=== PATIENT | male | born 1970 | race Caucasian/White ===

== ENCOUNTER 2019-12-05 14:41 | Inpatient (IN) | payer MEDICAID ==
[~2019-12-05] VITALS: Ht 170.2 cm; Wt 64.3 kg
[2019-12-05] MEDS ORDERED: QUET400T12 PO (15:11)
[2019-12-05] MEDS ORDERED: loperamide 2mg capsule PO PRN (15:15)
[2019-12-05] MEDS ORDERED: hydrOXYzine 25 MG tablet PO PRN (15:15)
[2019-12-05] MEDS ORDERED: traZODone 50mg tablet PO PRN (15:15)
[2019-12-05] MEDS ORDERED: diphenhydrAMINE 25mg capsule PO PRN (15:15)
[2019-12-05] MEDS ORDERED: mag hydrox/Alum hydrox/simeth 30ml oral suspension PO PRN (15:15)
[2019-12-05] MEDS ORDERED: LORazepam 1 MG tablet PO PRN (15:15)
[2019-12-05] MEDS ORDERED: magnesium hydroxide 30ml (MOM) UD suspension PO PRN (15:15)
[2019-12-05] MEDS ORDERED: haloperidol 5mg tablet PO PRN (15:15)
[2019-12-05] MEDS ORDERED: acetaminophen 325mg tablet PO PRN ×2 (15:15)
[2019-12-05 20:00] VITALS: BP 116/88
[2019-12-05] MEDS ORDERED: PALI9TAB PO (20:39)
[2019-12-05] MEDS: quetiapine 100mg tablet PO SCH (22:35)
--- NOTE | 2019-12-06 03:38 | NUR ---
TEASELER NOTE: LEGAL HOLD: 5150 for DTS. REPORT: Received from JANET Valiente with use of SBAR REASON FOR ADMISSION: Client was transferred from [facility] and arrived on the unit at 20:00. Client was accompanied to unit by and BLAISE Martinez in a wheelchair. Changed into green scrubs, vital signs, physical and skin assessment were obtained. Client has a long history of mental health issues, poly-substance abuse, ETOH abuse, and one suicide attempt. He reports hearing ten different voices that tell him to hurt himself and others. Client stopped taking his meds two weeks ago and has declined since. Reports that the voices are "worse than they have ever been". Client arrived on unit disheveled, and appeared anxious. He was cooperative during admission. His belongings were inventoried. He received 800 mg Seroquel Tab PO and went to sleep. ASSESSMENT: S/I, H/I: Admitted for SI A/VH: AH/CAH Sleep:morning nap. ADL's: Independent Group attendance: No Groups at this time. Were meds taken: Yes Any med S/E: None reported or observed. MSE: Appearance: disheveled, tanned Eye contact: fair Behavior: cooperative Speech: Minimal, clear Mood: anxious Affect: blunted Thought process: Linear Cognition: A&O X3 Insight: Fair Judgment: Fair INTERVENTIONS: PRN's used: None Therapeutic interventions: Safe, therapeutic environment. Meds. Restraints/seclusion/emergency medication: None Justification of Continued Inpatient Treatment: Client has been off medications and needs stabilization and a safe discharge plan.
[2019-12-06 07:57] VITALS: BP 117/78
[2019-12-06] MEDS: PALIPERIDONE 3 MG TAB.ER.24 PO SCH (08:02)
[2019-12-06 08:47] LABS: HEMOGLOBIN A1C 5.4 % (4.5-6.2)
[2019-12-06 08:56] LABS: CHOL/HDL RATIO 2.7 (0.00-4.99); CHOLESTEROL 154 MG/DL (0-200); HDL CHOLESTEROL 57 MG/DL (35-60); LDL CHOLESTEROL 84 MG/DL (50-100); TRIGLYCERIDES 74 MG/DL (20-135)
[2019-12-06] MEDS ORDERED: FLU VACC QS2019-20 36MOS UP/PF 60 MCG/0.5 ML SYRINGE IMVAC ONE (10:00)
[2019-12-06] MEDS ORDERED: pneumococcal 23-VAL P-sac vacc 25 mcg/0.5ml vial IMVAC ONE (10:00)
--- NOTE | 2019-12-06 17:15 | NUR ---
Nursing Progress Note: LEGAL HOLD: 5150 for DTS. REPORT: Received from JANET Montalvo with use of SBAR REASON FOR ADMISSION: Client has a long history of mental health issues, poly-substance abuse, ETOH abuse, and one suicide attempt. He reports hearing ten different voices that tell him to hurt himself and others. Client stopped taking his meds two weeks ago and has declined since. Reports that the voices are "worse than they have ever been". Client arrived on unit disheveled, and appeared anxious. He was cooperative during admission. His belongings were inventoried. He received 800 mg Seroquel Tab PO and went to sleep. What happened this shift: Patient awakened for breakfast and medications. Patient appears depressed and napped in a.m. Patient states that he has been suicidal for a long time. After he quit taking his medications, the command auditory hallucinations returned, telling him to kill himself. Pt. Reports that the voices are barely noticeable in the morning and increase as the day goes on. Patient spent much of the shift sleeping. ASSESSMENT: S/I, H/I: +SI. A/VH: AH/CAH Sleep: morning nap. ADL's: Independent Group attendance: NA Were meds taken: Yes Any med S/E: None reported or observed. Mental status exam: Appearance: Tanned male with salt and pepper hair and jiménez. Eye contact: Poor. Behavior: Fatigued. Calm, cooperative. Withdrawn, isolative. Speech: Minimal, clear Mood: Depressed. Affect: Flat. Thought process: Linear Cognition: A&O X3 Insight: Fair Judgment: Fair INTERVENTIONS: PRN's used: None Therapeutic interventions: 1:1 to evaluate for severity of mental disorder, SI. Administer medications/education/monitoring. Therapeutic conversation. Q15 safety checks. Restraints/seclusion/emergency medication: None Justification of Continued Inpatient Treatment: Patient is in need of a safe, supportive environment. Medication adjustments to stabilize patient and decrease risk of readmission.
[2019-12-06 20:00] VITALS: BP 129/88
[2019-12-06] MEDS: quetiapine 100mg tablet PO SCH (21:17)
--- NOTE | 2019-12-07 00:32 | NUR ---
Nursing Progress Note: Jevon Legal hold: 5150 Client on voluntary/involuntary status for DTS. Report received from MYRA Talavera with use of SBAR. Why are they here: Client has a long history of mental health issues, poly-substance abuse, ETOH abuse, and one suicide attempt. He reports hearing ten different voices that tell him to hurt himself and others. Client stopped taking his meds two weeks ago and has declined since. Reports that the voices are "worse than they have ever been". Client arrived on unit disheveled, and appeared anxious. He was cooperative during admission. His belongings were inventoried. He received 800 mg Seroquel Tab PO and went to sleep.. Assessment What has happened this shift: Pt was in recreation room for most of the evening. He then retired to his room and napped for a good while. Awaken pt for physical and medication administration, which he was compliant with. Pt states that he is feeling okay. When asked what had brought him here, he states that the voices where getting loud, telling him to hurt himself and others and other weird stuff. He states that right now, theres nothing that he can hurt himself so the voices are less demanding but they are trying to change his personality. Pt denies hearing any voices right now but states that they are pretty constant but usually go away when he is sleeping. He denies any S/I, H/I, depression or anxiety. He also states that he has visual hallucinations, "bursting fire and other weird stuff that I know it's not real." He states that this are worst during the night in the dark. Will continue to monitor. S/I, H/I: Denies A/VH: Currently none but states that he was having auditory and visual hallucinations all throughout the day Sleep: Currently sleeping, see sleep assessment for total hours ADL's: Independent Group attendance: None during casino shift manager Were meds taken: Yes Any med S/E: None reported or observed Mental Status Exam Appearance: Appropriate, wearing personal clothing, well groomed Eye contact: Direct, good Behavior: Calm, cooperative, somewhat isolative Speech: Normal rate and rhythm Mood: Euthymic Affect: Blunted Thought process: Circumstantial Thought Content: Sleep, medication, discharge Cognition: Alert and oriented X4 Insight: Poor Judgment: Poor Interventions PRN's used: None Therapeutic interventions: 1:1 to evaluate for severity of mental disorder, SI. Administer medications/education/monitoring. Therapeutic conversation. Q15 safety checks. Restraints/seclusion/emergency medication: None Justification of Continued Inpatient Treatment: Patient is in need of a safe, supportive environment. Medication adjustments to stabilize patient and decrease risk of readmission.
[2019-12-07 08:00] VITALS: BP 123/74
[2019-12-07] MEDS: PALIPERIDONE 3 MG TAB.ER.24 PO SCH (08:04)
--- NOTE | 2019-12-07 09:10 | NUR ---
PSYCHOSOCIAL ASSESSMENT Jevon is a 49 y/o single male who was placed on 5150 for danger to self. He was taken to [facility] in [facility] by police due to command auditory hallucinations telling him to harm himself. He was without medications for 2 weeks because they were in his car which was impounded. Jevon currently lives in a mobile home on a friends property in [place]. He is followed by [facility] and has been hospitalized 6 times over the last 5 years. He plans on returning to [place] upon discharge. PAMELA Nj Addendum: 12/07/19 at 0911 by Caridad ACOSTA Amended: Links added.
--- NOTE | 2019-12-07 12:49 | NUR ---
NURSING PROGRESS NOTE LEGAL HOLD: 5150 for DTS. REPORT: Received from JANET Montalvo with use of SBAR REASON FOR ADMISSION: Client has a long history of mental health issues, poly-substance abuse, ETOH abuse, and one suicide attempt. He reports hearing ten different voices that tell him to hurt himself and others. Client stopped taking his meds two weeks ago and has declined since. Reports that the voices are "worse than they have ever been". Client arrived on unit disheveled, and appeared anxious. He was cooperative during admission. His belongings were inventoried. He received 800 mg Seroquel Tab PO and went to sleep. What happened this shift: Patient is asleep at change of shift. Depressed mood, flat affect. Reports command auditory hallucinations and some VH's which he describes as "things just move around, or if I look out the window things fall out of the alyssa, its terra hard to describe." Denies SI because he states, "I feel safe here." Eating well and medication compliant. Polite and cooperative. Encouraged to come out on unit and to let staff know if he feels overwhelmed or anxious. ASSESSMENT: S/I, H/I: Denies A/VH: Auditory and visual Sleep: naps briefly ADL's: Independent Group attendance: N/A Were meds taken: Yes Any med S/E: None reported or observed. Mental status exam: Appearance: clean and neat Eye contact: fair Behavior: Cooperative Speech: soft, clear Mood: Depressed. Affect: Flat. Thought process: Linear Cognition: A&O X3 Insight: Fair Judgment: Fair INTERVENTIONS: PRN's used: None Therapeutic interventions: 1:1 to evaluate for severity of mental disorder, SI. Administer medications/education/monitoring. Therapeutic conversation. Q15 safety checks. Restraints/seclusion/emergency medication: None Justification of Continued Inpatient Treatment: Patient is in need of a safe, supportive environment. Medication adjustments to stabilize patient and decrease risk of readmission.
[2019-12-07 20:13] VITALS: BP 130/85
[2019-12-07] MEDS: quetiapine 100mg tablet PO SCH (20:48)
--- NOTE | 2019-12-08 00:18 | NUR ---
Nursing Progress Note: Jevon Legal hold: 5150 Client on involuntary status for DTS. Report received from JANET Antony with use of SBAR. Why are they here: Client has a long history of mental health issues, poly-substance abuse, ETOH abuse, and one suicide attempt. He reports hearing ten different voices that tell him to hurt himself and others. Client stopped taking his meds two weeks ago and has declined since. Reports that the voices are "worse than they have ever been". Client arrived on unit disheveled, and appeared anxious. He was cooperative during admission. His belongings were inventoried. He received 800 mg Seroquel Tab PO and went to sleep.. Assessment What has happened this shift: Pt was in his room during shift change and appeared to be sleeping. Pt was observed in recreation room watching TV and socializing appropriately with other patients. He denies any depression or anxiety and when asked about his mood he states Its kind of right in the middle. I have been feeling a little down today. Pts affect continues to be blunted with intermittent brightening. His behavior seemed a little more guarded as he did not engage in conversation with this public relations writer and only answered questions minimally. When asked about hallucinations he states that he is hearing weird voices. Does not elaborate on what they are saying. He states that he also sees weird stuff once in a while. Denies any S/I, H/I. Pt was not observed responding to internal stimuli and did not make any delusional statements. He spent some more time in TV room before going to bed. S/I, H/I: Denies A/VH: +A/H, +V/H Sleep: Currently sleeping, see sleep assessment for total hours ADL's: Independent Group attendance: None during shift stacker Were meds taken: Yes Any med S/E: None reported or observed Mental Status Exam Appearance: Appropriate, wearing personal clothing, well groomed Eye contact: Direct, good Behavior: Calm, cooperative, somewhat guarded Speech: Normal rate and rhythm Mood: "Kind of right in the middle", states he has been feeling down Affect: Blunted Thought process: Circumstantial Thought Content: Medication, discharge Cognition: Alert and oriented X4 Insight: Fair Judgment: Poor Interventions PRN's used: None Therapeutic interventions: 1:1 to evaluate for severity of mental disorder, SI. Administer medications/education/monitoring. Therapeutic conversation. Q15 safety checks. Restraints/seclusion/emergency medication: None Justification of Continued Inpatient Treatment: Patient is in need of a safe, supportive environment. Medication adjustments to stabilize patient and decrease risk of readmission.
[2019-12-08 08:00] VITALS: BP 118/80
[2019-12-08] MEDS: PALIPERIDONE 3 MG TAB.ER.24 PO SCH (08:07)
--- NOTE | 2019-12-08 14:21 | NUR ---
NURSING PROGRESS NOTE VOLUNTARY REPORT: Received from MYAR Razo with use of SBAR REASON FOR ADMISSION: Client has a long history of mental health issues, poly-substance abuse, ETOH abuse, and one suicide attempt. He reports hearing ten different voices that tell him to hurt himself and others. Client stopped taking his meds two weeks ago and has declined since. Reports that the voices are "worse than they have ever been". Client arrived on unit disheveled, and appeared anxious. He was cooperative during admission. His belongings were inventoried. He received 800 mg Seroquel Tab PO and went to sleep. What happened this shift: Patient is asleep at change of shift. Depressed mood, flat affect. Reports command auditory hallucinations worsening today and having increased anxiety. Given Ativan 2mg with good effect in calming patient, was able to take a nap and rest. Denies SI because he states, "I still feel safe here." Eating well and medication compliant. Polite and cooperative. Agreed to voluntary status and agrees and signs to stay a few more days after talking with PA. Encouraged to come out on unit and to let staff know if he feels overwhelmed or anxious. ASSESSMENT: S/I, H/I: Denies A/VH: Auditory and visual Sleep: naps briefly ADL's: Independent Group attendance: N/A Were meds taken: Yes Any med S/E: None reported or observed. Mental status exam: Appearance: clean and neat Eye contact: fair Behavior: Cooperative Speech: soft, clear Mood: Depressed. Affect: Flat. Thought process: Linear Cognition: A&O X3 Insight: Fair Judgment: Fair INTERVENTIONS: PRN's used: Ativan 2mg x1 Therapeutic interventions: 1:1 to evaluate for severity of mental disorder, SI. Administer medications/education/monitoring. Therapeutic conversation. Q15 safety checks. Restraints/seclusion/emergency medication: None Justification of Continued Inpatient Treatment: Patient is in need of a safe, supportive environment. Medication adjustments to stabilize patient and decrease risk of readmission.
[2019-12-08 20:03] VITALS: BP 130/88
[2019-12-08] MEDS: quetiapine 100mg tablet PO SCH (21:24)
--- NOTE | 2019-12-09 00:34 | NUR ---
Nursing Progress Note: Jevon Legal hold: Voluntary Client on voluntary status for DTS. Report received from JANET Antony with use of SBAR. Why are they here: Client has a long history of mental health issues, poly-substance abuse, ETOH abuse, and one suicide attempt. He reports hearing ten different voices that tell him to hurt himself and others. Client stopped taking his meds two weeks ago and has declined since. Reports that the voices are "worse than they have ever been". Client arrived on unit disheveled, and appeared anxious. He was cooperative during admission. His belongings were inventoried. He received 800 mg Seroquel Tab PO and went to sleep.. Assessment What has happened this shift: Pt was in TV room watching a movie during shift change. He as cooperative during 1:1 physical assessment and took his Seroquel without any issues. Pt states that the voices are still present and that they always want to hurt him. He feels like he is constantly fighting against the voices. When asked about his hold being up and how he feels about that, he states that he feels okay with it and will likely be going home on Wednesday or Wednesday back home to [place]. He denies any S/I, or H/I even though the voices are telling him to hurt himself but he wont let them get to him. Pt endorses mild anxiety but he states it is pretty normal for him and does not want any medication for it. He sates that he feels like he had his worst breakdown before coming here. When asked if he feels like the medications are helping he states that the Seroquel helps him by calming the voices but is not sure about the Invega. Pt was observed pacing the isles for some time before going to bed. S/I, H/I: Denies A/VH: +A/H, negative demanding voices that tell him to hurt himself. Sleep: Currently sleeping, see sleep assessment for total hours ADL's: Independent Group attendance: None during monitoring tech Were meds taken: Yes Any med S/E: None reported or observed Mental Status Exam Appearance: Appropriate, wearing personal clothing, well groomed Eye contact: Direct, good Behavior: Calm, cooperative, appears be socializing appropriately with other patients Speech: Normal rate and rhythm Mood: "not too shabby" pt still appears somewhat depressed Affect: Blunted with intermittent brightening Thought process: Circumstantial Thought Content: Medication, discharge, being able to handle the hallucinations Cognition: Alert and oriented X4 Insight: Fair Judgment: Poor Interventions PRN's used: None Therapeutic interventions: 1:1 to evaluate for severity of mental disorder, SI. Administer medications/education/monitoring. Therapeutic conversation. Q15 safety checks. Restraints/seclusion/emergency medication: None Justification of Continued Inpatient Treatment: Patient is in need of a safe, supportive environment. Medication adjustments to stabilize patient and decrease risk of readmission.
[2019-12-09 07:18] VITALS: BP 107/77
[2019-12-09] MEDS: PALIPERIDONE 3 MG TAB.ER.24 PO SCH (08:08)
--- NOTE | 2019-12-09 10:41 | NUR ---
Initial: Pt admit with psychosis with SI. Pt on a regular diet documented with 100% PO intake meeting nutrient needs. LBM 12/07. No edema or wounds. No nutrition diagnosis at this time. Will continue to follow. Recommendations: 1) Continue regular diet 2) Bowel care PRN 3) Wt per rx Addendum: 12/09/19 at [address] Amended: Links added.
--- NOTE | 2019-12-09 16:31 | NUR ---
NURSING PROGRESS NOTE VOLUNTARY REPORT: Received from MYRA Razo with use of SBAR REASON FOR ADMISSION: Client has a long history of mental health issues, poly-substance abuse, ETOH abuse, and one suicide attempt. He reports hearing ten different voices that tell him to hurt himself and others. Client stopped taking his meds two weeks ago and has declined since. Reports that the voices are "worse than they have ever been". Client arrived on unit disheveled, and appeared anxious. He was cooperative during admission. His belongings were inventoried. He received 800 mg Seroquel Tab PO and went to sleep. What happened this shift: Received pt sleeping at shift change. Pt. awakens for medications and breakfast. Pt. appears depressed and sleeps throughout the day. Pt. does not make eye contact while conversing. Patient is polite in all interactions. Pt. reports that the voices are "just messing with me today". The voices say they are going to leave him alone, and then just keep talking to him, but nothing negative in their comments today. Pt. states that the voices never go away. ASSESSMENT: S/I, H/I: Denies A/VH: Auditory Sleep: Naps ADL's: Independent Group attendance: N/A Were meds taken: Yes Any med S/E: None reported or observed. Mental status exam: Appearance: clean and neat Eye contact: Poor Behavior: Cooperative, friendly. Speech: soft, clear Mood: Depressed. Affect: Flat. Thought process: Linear Cognition: A&O X3 Insight: Fair Judgment: Fair INTERVENTIONS: PRN's used: Ativan 2mg x1 Therapeutic interventions: 1:1 to evaluate for severity of mental disorder, SI. Administer medications/education/monitoring. Therapeutic conversation. Q15 safety checks. Restraints/seclusion/emergency medication: None Justification of Continued Inpatient Treatment: Patient is in need of a safe, supportive environment. Medication adjustments to stabilize patient and decrease risk of readmission.
[2019-12-09] MEDS: quetiapine 100mg tablet PO SCH (20:15)
--- NOTE | 2019-12-10 02:27 | NUR ---
NURSING PROGRESS NOTE VOLUNTARY REPORT: Received from MYRA Antony with use of SBAR REASON FOR ADMISSION: Client has a long history of mental health issues, poly-substance abuse, ETOH abuse, and one suicide attempt. He reports hearing ten different voices that tell him to hurt himself and others. Client stopped taking his meds two weeks ago and has declined since. Reports that the voices are "worse than they have ever been". Client arrived on unit disheveled, and appeared anxious. He was cooperative during admission. His belongings were inventoried. He received 800 mg Seroquel Tab PO and went to sleep. ASSESSMENT: What happened this shift: Patient in rec room sitting in the corner not inter acting with peers. Pt stated that he feels good . He was responding to internal stimuli. Asked what the voices are telling him. He stated there just talking. Pt was Med compliant ate snack and went to bed. S/I, H/I: Denies A/VH: Auditory Sleep: Naps ADL's: Independent Group attendance: N/A Were meds taken: Yes Any med S/E: None reported or observed. Mental status exam: Appearance: clean and neat Eye contact: Poor Behavior: Cooperative, friendly. Speech: soft, clear Mood: Depressed. Affect: Flat. Thought process: Linear Cognition: A&O X3 Insight: Fair Judgment: Fair INTERVENTIONS: PRN's used: Ativan 2mg x1 Therapeutic interventions: 1:1 to evaluate for severity of mental disorder, SI. Administer medications/education/monitoring. Therapeutic conversation. Q15 safety checks. Restraints/seclusion/emergency medication: None Justification of Continued Inpatient Treatment: Patient is in need of a safe, supportive environment. Medication adjustments to stabilize patient and decrease risk of readmission.
[2019-12-10 07:41] VITALS: BP 105/73
[2019-12-10] MEDS: PALIPERIDONE 3 MG TAB.ER.24 PO SCH (08:08)
--- NOTE | 2019-12-10 17:27 | NUR ---
NURSING PROGRESS NOTE VOLUNTARY REPORT: Received from MYRA Tellez with use of SBAR REASON FOR ADMISSION: Client has a long history of mental health issues, poly-substance abuse, ETOH abuse, and one suicide attempt. He reports hearing ten different voices that tell him to hurt himself and others. Client stopped taking his meds two weeks ago and has declined since. Reports that the voices are "worse than they have ever been". Client arrived on unit disheveled, and appeared anxious. He was cooperative during admission. His belongings were inventoried. He received 800 mg Seroquel Tab PO and went to sleep. What happened this shift: Received pt. Sleeping in bed. Patient gets up to eat, then goes back to bed. Patient denies SI. Reports that I have not heard any voices today because I havent been awake for 5 minutes, or theyd be going at it. Patient rates his depression at a 7/10. Patient has no complaints, questions or need for assistance. ASSESSMENT: S/I, H/I: Denies A/VH: None today so far Sleep: 7.75 hrs NOC. Slept during daytime. ADL's: Independent Group attendance: N/A Were meds taken: Yes Any med S/E: None reported or observed. Mental status exam: Appearance: Salt and pepper hair and jiménez, tanned, wearing unit attire. Eye contact: Poor Behavior: Cooperative, friendly. Speech: soft, clear, minimal. Mood: Depressed. Affect: Flat. Thought process: Linear Cognition: A&O X3 Insight: Fair Judgment: Fair INTERVENTIONS: PRN's used: Therapeutic interventions: 1:1 to evaluate for severity of mental disorder, SI. Administer medications/education/monitoring. Therapeutic conversation. Q15 safety checks. Restraints/seclusion/emergency medication: None Justification of Continued Inpatient Treatment: Patient is in need of a safe, supportive environment. Medication adjustments to stabilize patient and decrease risk of readmission.
[2019-12-10 20:07] VITALS: BP 125/79
[2019-12-10] MEDS: quetiapine 100mg tablet PO SCH (20:31)
--- NOTE | 2019-12-11 02:54 | NUR ---
NURSING PROGRESS NOTE VOLUNTARY REPORT: Received MYRA Higgins with use of SBAR REASON FOR ADMISSION: Client has a long history of mental health issues, poly-substance abuse, ETOH abuse, and one suicide attempt. He reports hearing ten different voices that tell him to hurt himself and others. Client stopped taking his meds two weeks ago and has declined since. Reports that the voices are "worse than they have ever been". Client arrived on unit disheveled, and appeared anxious. He was cooperative during admission. His belongings were inventoried. He received 800 mg Seroquel Tab PO and went to sleep. What happened this shift: Patient was up and in rec room watching tv and listening to a peer play the guitar and sing. He states that he feels pretty good but depressed at times. He denies SI and AH. Pt states I dont know where I will go when d/c. ASSESSMENT: S/I, H/I: Denies A/VH: None today so far Sleep: 7.75 hrs NOC. Slept during daytime. ADL's: Independent Group attendance: N/A Were meds taken: Yes Any med S/E: None reported or observed. Mental status exam: Appearance: Salt and pepper hair and jiménez, tanned, wearing unit attire. Eye contact: Poor Behavior: Cooperative, friendly. Speech: soft, clear, minimal. Mood: Depressed. Affect: Flat. Thought process: Linear Cognition: A&O X3 Insight: Fair Judgment: Fair INTERVENTIONS: PRN's used: Therapeutic interventions: 1:1 to evaluate for severity of mental disorder, SI. Administer medications/education/monitoring. Therapeutic conversation. Q15 safety checks. Restraints/seclusion/emergency medication: None Justification of Continued Inpatient Treatment: Patient is in need of a safe, supportive environment. Medication adjustments to stabilize patient and decrease risk of readmission.
[2019-12-11] MEDS: PALIPERIDONE 3 MG TAB.ER.24 PO SCH (08:08)
[2019-12-11 08:36] VITALS: BP 110/73
--- NOTE | 2019-12-11 15:48 | NUR ---
NURSING PROGRESS NOTE VOLUNTARY REPORT: Received from MYRA Aldridge with use of SBAR REASON FOR ADMISSION: Client has a long history of mental health issues, poly-substance abuse, ETOH abuse, and one suicide attempt. He reports hearing ten different voices that tell him to hurt himself and others. Client stopped taking his meds two weeks ago and has declined since. Reports that the voices are "worse than they have ever been". Client arrived on unit disheveled, and appeared anxious. He was cooperative during admission. His belongings were inventoried. He received 800 mg Seroquel Tab PO and went to sleep. What happened this shift: Received pt asleep in his room in bed. Pt awoke for breakfast and took am meds and was cooperative with am assessment. Pt denies suicidal thoughts and denies auditory hallucinations; though, he appeared internally preoccupied at times throughout the day. Pt has blunted/troubled affect. Pt denies depression and after breakfast is visible on the unit most of the rest of the shift sitting with peers watching television and then two movies in the dayroom. ASSESSMENT: S/I, H/I: Denies A/VH: None today so far Sleep: 8 hrs NOC. No napping ADL's: Independent Group attendance: patio Were meds taken: Yes Any med S/E: None reported or observed. Mental status exam: Appearance: Salt and pepper hair and jiménez, tanned, wearing unit attire. Eye contact: Poor Behavior: Cooperative, friendly. Speech: soft, clear, minimal. Mood: Depressed. Affect: Flat. Thought process: Linear Cognition: A&O X3 Insight: Fair Judgment: Fair INTERVENTIONS: PRN's used: Therapeutic interventions: 1:1 to evaluate for severity of mental disorder, SI. Administer medications/education/monitoring. Therapeutic conversation. Q15 safety checks. Restraints/seclusion/emergency medication: None Justification of Continued Inpatient Treatment: Patient is in need of a safe, supportive environment. Medication adjustments to stabilize patient and decrease risk of readmission.and halfway. She is child-like and delusional. There is a conservatorship hearing set for 12/19/2019. Pt has been accepted to [facility] once a bed opens up.
--- NOTE | 2019-12-11 17:31 | NUR ---
Per consult with attending Alcon ARAGON, pt is ready for d/c tomorrow. will need to coordinate dcp w/[facility]. SS had t/c with [facility] DCP, left vm re pt's pending d/c. Plan: F/u with [facility] & client tomorrow to finalize dcp. LISA TolentinoW Addendum: 12/11/19 at 1733 by Anjelica Carlson Amended: Links added.
[2019-12-11 20:00] VITALS: BP 138/89
[2019-12-11] MEDS: quetiapine 100mg tablet PO SCH (20:28)
--- NOTE | 2019-12-12 02:04 | NUR ---
NURSING PROGRESS NOTE VOLUNTARY REPORT: Received from MYRA Antony with use of SBAR REASON FOR ADMISSION: Client has a long history of mental health issues, poly-substance abuse, ETOH abuse, and one suicide attempt. He reports hearing ten different voices that tell him to hurt himself and others. Client stopped taking his meds two weeks ago and has declined since. Reports that the voices are "worse than they have ever been". Client arrived on unit disheveled, and appeared anxious. He was cooperative during admission. His belongings were inventoried. He received 800 mg Seroquel Tab PO and went to sleep. What happened this shift: Patient was up and on the unit at shift change asked to take shower. He paced the li a while then went to the rec room and watched a movie but sat in back of the room. He displays minimal interaction with peers. ASSESSMENT: S/I, H/I: Denies A/VH: None today so far Sleep: 8 hrs NOC. No napping ADL's: Independent Group attendance: patio Were meds taken: Yes Any med S/E: None reported or observed. Mental status exam: Appearance: Salt and pepper hair and jiménez, tanned, wearing unit attire. Eye contact: Poor Behavior: Cooperative, friendly. Speech: soft, clear, minimal. Mood: Depressed. Affect: Flat. Thought process: Linear Cognition: A&O X3 Insight: Fair Judgment: Fair INTERVENTIONS: PRN's used: Therapeutic interventions: 1:1 to evaluate for severity of mental disorder, SI. Administer medications/education/monitoring. Therapeutic conversation. Q15 safety checks. Restraints/seclusion/emergency medication: None Justification of Continued Inpatient Treatment: Patient is in need of a safe, supportive environment. Medication adjustments to stabilize patient and decrease risk of readmission.and custodial. She is child-like and delusional. There is a conservatorship hearing set for 12/19/2019. Pt has been accepted to [facility] once a bed opens up.
[2019-12-12] MEDS: PALIPERIDONE 3 MG TAB.ER.24 PO SCH (08:27)
--- NOTE | 2019-12-12 17:04 | NUR ---
NURSING PROGRESS NOTE VOLUNTARY REPORT: Received from Katia GONZALES with use of SBAR REASON FOR ADMISSION: Client has a long history of mental health issues, poly-substance abuse, ETOH abuse, and one suicide attempt. He reports hearing ten different voices that tell him to hurt himself and others. Client stopped taking his meds two weeks ago and has declined since. Reports that the voices are "worse than they have ever been". Client arrived on unit disheveled, and appeared anxious. He was cooperative during admission. His belongings were inventoried. He received 800 mg Seroquel Tab PO and went to sleep. What happened this shift: Patient was asleep at change of shift and up for breakfast. Patient is quiet and calm. Patient denies suicidal/homicidal ideation. Patient states he is hearing voices but not very often. Patient denies depression, although patient has depressed affect. Patient isolates and took several naps today. ASSESSMENT: S/I, H/I: Denies A/VH: Audio hallucinations Sleep: Several naps ADL's: Independent Group attendance: n/a Were meds taken: Yes Any med S/E: None reported or observed. Mental status exam: Appearance: Salt and pepper hair and jiménez, tanned, wearing unit attire. Eye contact: Poor Behavior: Cooperative, Speech: soft, clear, minimal. Mood: Depressed. Affect: Flat. Thought process: Linear Cognition: A&O X3 Insight: Fair Judgment: Fair INTERVENTIONS: PRN's used: none Therapeutic interventions: 1:1 to evaluate for severity of mental disorder, SI. Administer medications/education/monitoring. Therapeutic conversation. Q15 safety checks. Restraints/seclusion/emergency medication: None Justification of Continued Inpatient Treatment: Patient is in need of a safe, supportive environment. Medication adjustments to stabilize patient and decrease risk of readmission.and snf. She is child-like and delusional. There is a conservatorship hearing set for 12/19/2019. Pt has been accepted to [facility] once a bed opens up.
[2019-12-12 20:00] VITALS: BP 125/82
[2019-12-12] MEDS: quetiapine 100mg tablet PO SCH (20:29)
--- NOTE | 2019-12-13 01:02 | NUR ---
NURSING PROGRESS NOTE VOLUNTARY REPORT: Received from Shaggy GONZALES with use of SBAR REASON FOR ADMISSION: Client has a long history of mental health issues, poly-substance abuse, ETOH abuse, and one suicide attempt. He reports hearing ten different voices that tell him to hurt himself and others. Client stopped taking his meds two weeks ago and has declined since. Reports that the voices are "worse than they have ever been". Client arrived on unit disheveled, and appeared anxious. He was cooperative during admission. His belongings were inventoried. He received 800 mg Seroquel Tab PO and went to sleep. What happened this shift: Patient was in his room at shift change. He stayed there most of the shift comming out to walk the li a few times. Pt stated that he was thinking about d/c and did not want to be bothered. ASSESSMENT: S/I, H/I: Denies A/VH: Audio hallucinations Sleep: Several naps ADL's: Independent Group attendance: n/a Were meds taken: Yes Any med S/E: None reported or observed. Mental status exam: Appearance: Salt and pepper hair and jiménez, tanned, wearing unit attire. Eye contact: Poor Behavior: Cooperative, Speech: soft, clear, minimal. Mood: Depressed. Affect: Flat. Thought process: Linear Cognition: A&O X3 Insight: Fair Judgment: Fair INTERVENTIONS: PRN's used: none Therapeutic interventions: 1:1 to evaluate for severity of mental disorder, SI. Administer medications/education/monitoring. Therapeutic conversation. Q15 safety checks. Restraints/seclusion/emergency medication: None Justification of Continued Inpatient Treatment: Patient is in need of a safe, supportive environment. Medication adjustments to stabilize patient and decrease risk of readmission.and retirement. She is child-like and delusional. There is a conservTransinsighthip hearing set for 12/19/2019. Pt has been accepted to [facility] once a bed opens up.
[2019-12-13 08:00] VITALS: BP 130/71
[2019-12-13] MEDS: PALIPERIDONE 3 MG TAB.ER.24 PO SCH (09:05)
[2019-12-13] MEDS ORDERED: TRAZ-251 PO (10:37)
[2019-12-13] MEDS ORDERED: QUET400T12 PO (10:37)
[2019-12-13] MEDS ORDERED: PALI3TAB5 PO (10:37)
--- NOTE | 2019-12-13 11:28 | NUR ---
document preparer microfilming Note: Patient awake, alert and in no distress. Patient denies suicidal/homicidal ideation. Patient states he only hears a few voices today and they are not command or threatening. Patient is happy to go home. Patient given discharge instructions. Patient verbalized understanding. All questions were answered. Patient ambulatory, steady gait with all his belongings to Main Lobby with [facility]. [facility] Electrical Experimental Mechanic to drive patient back to his apartment in [place], [place]. Patient did not have any wounds and did not need an MRSA swab. Patient states he is going to continue to smoke and doesn't need nicotine replacement.
== END 2019-12-13 11:28 | disposition home or self-care (01) | DRG 750 ==
LOC: ADULT MH 14:41
PROVIDERS: ADMIT Psychiatry & Neurology Psychiatry; ATTEND Psychiatry & Neurology Psychiatry
PROC: 3E0234Z Introduction of Serum, Toxoid and Vaccine into Muscle, Percutaneous Approach (ICD-10-PCS; principal; 2019-12-06)
DX: F25.9 Schizoaffective disorder, unspecified (principal); R45.851 Suicidal ideations; E11.9 Type 2 diabetes mellitus without complications; Z91.19 Patient's noncompliance with other medical treatment and regimen; F17.210 Nicotine dependence, cigarettes, uncomplicated; Z23 Encounter for immunization; Z91.041 Radiographic dye allergy status
CPT/HCPCS: 36415; 80061; 83036; 87081; 90732; 99285; Q2037